=== PATIENT | male | born 1950 | race Caucasian/White ===

== ENCOUNTER 2016-08-05 07:18 | Outpatient (CLI) | payer OTHER ==
[2016-08-05 08:02] LABS: ALT (SGPT) 15 U/L (0-55); AST (SGOT) 14 U/L (5-34); Albumin 4.1 g/dL (3.4-4.8); Alkaline Phosphatase 68 U/L (40-150); Anion Gap 13 mmol/L (10-20); BUN (Urea Nitrogen) 13 mg/dL (8.4-25.7); Bilirubin, Total 0.6 mg/dL (0.2-1.2); Calc. Creatinine Clearance 0 mL/min (70-130); Calcium 9.2 mg/dL (7.8-10.44); Carbon Dioxide 29 mmol/L (23-31); Cardiac Risk 3.9 (Less than 4.5); Chloride 105 mmol/L (98-107); Cholesterol 175 mg/dL (< 200 Desired); Estimated GFR-MDRD 90; Globulin 2.5 g/dL (2.4-3.5); Glucose 117 mg/dL (80-115); HDL Cholesterol 45 mg/dL (>60 Neg Risk); LDL Cholesterol, Calculated 114 mg/dL; Potassium 3.8 mmol/L (3.5-5.1); Protein, Total 6.6 g/dL (5.8-8.1); Sodium 143 mmol/L (136-145); Triglycerides 78 mg/dL (Less than 150)
[2016-08-05 08:58] LABS: Hemoglobin A1c 5.4 % (4.0-6.0)
== END 2016-08-05 07:19 | disposition home or self-care (01) ==
LOC: MADLABBHPM 07:18
PROVIDERS: ATTEND Family Medicine
DX: E03.9 Hypothyroidism, unspecified (principal)
CPT/HCPCS: 36415; 80053; 80061; 83036

== ENCOUNTER 2017-01-28 07:09 | Outpatient (CLI) | payer OTHER ==
[2017-01-28 08:16] LABS: ALT (SGPT) 15 U/L (8-55); AST (SGOT) 12 U/L (5-34); Albumin 3.9 g/dL (3.4-4.8); Alkaline Phosphatase 60 U/L (40-150); Anion Gap 13 mmol/L (10-20); BUN (Urea Nitrogen) 12 mg/dL (8.4-25.7); Bilirubin, Total 0.6 mg/dL (0.2-1.2); Calc. Creatinine Clearance 0 mL/min (70-130); Calcium 8.8 mg/dL (7.8-10.44); Carbon Dioxide 26 mmol/L (23-31); Chloride 106 mmol/L (98-107); Estimated GFR-MDRD Greater than 90; Globulin 2.7 g/dL (2.4-3.5); Glucose 116 mg/dL (80-115); Potassium 3.7 mmol/L (3.5-5.1); Protein, Total 6.6 g/dL (5.8-8.1); Sodium 141 mmol/L (136-145)
== END 2017-01-28 07:10 | disposition home or self-care (01) ==
LOC: MADLABBHPM 07:09
PROVIDERS: ATTEND Family Medicine
DX: E03.9 Hypothyroidism, unspecified (principal)
CPT/HCPCS: 36415; 80053; 84443

== ENCOUNTER 2018-08-24 21:07 | Emergency (ER) | payer MEDICARE ==
[2018-08-24 22:22] LABS: Bilirubin Small (Negative); Blood, Urine Large (Negative); Clarity Slightly Cloudy (Clear); Glucose, Urine (Dipstick) Negative (Negative); Leukocyte Negative (Negative); Nitrite Negative (Negative); Protein, Urine (Dipstick) 30 mg/dL (Neg-Trace); Urobilinogen 0.2 mg/dL (0.2-1.0); pH, Urine 5.5 (5.0-9.0)
[2018-08-24 22:23] LABS: Specific Gravity, Urine 1.027 (1.002-1.036)
--- NOTE | 2018-08-24 22:35 | CT ---
CT ABDOMEN AND PELVIS WITHOUT CONTRAST STONE PROTOCOL 08/24/18 HISTORY: Abdominal pain. COMPARISON: CT from 02/13/18. FINDINGS: Scarring in the left lung base. There is a calculus in the proximal right ureter measuring 3 x 3 x 4 mm approximately 6 cm distal to the renal pelvis causing mild right sided hydroureteronephrosis and r ight sided perinephric stranding. No other calculus is seen within the right collecting system. There is a 6 mm calculus superior left renal collecting system. No left sided hydroureteronephrosis. Urinary bladder is unremarkable. No dilated loops of large or small bowel. The appendix is visualized and is normal. Prior small bowel surgery with some fecalization of the small bowel just distal to th e anastomosis likely neurogenic in nature. There is a small fat containing ventral hernia. Likely a prior ventral hernia repair with the fat ext ending craniad to this repair. No significant edema within the fat containing supraumbilical ventral hernia. No acute osseous abnormality. IMPRESSION: Partially obstructive right proximal ureteral calculus as described. POS: [id number]
[2018-08-24 22:42] LABS: #Basophils 0.1 thou/uL (0.0-0.2); #Eosinphils 0.1 thou/uL (0.0-0.7); #Lymphocytes 0.8 thou/uL (1.20-3.40); #Monocytes 0.6 thou/uL (0.11-0.59); #Neutrophils 11.8 thou/uL (1.40-6.50); %Basophils 0.9 % (0.0-1.0); %Eosinophils 0.7 % (0.0-10.0); %Lymphocytes 6.2 % (21.0-51.0); %Monocytes 4.3 % (0.0-10.0); %Neutrophils 87.9 % (42.0-75.0); Hemoglobin 13.2 g/dL (14.0-18.0); Mean Corpuscular HGB CONC 33.7 g/dL (32.0-36.0); Mean Corpuscular Hemoglobin 31.5 pg (27.0-31.0); Mean Corpuscular Volume 93.4 fL (78.0-98.0); Mean Platelet Volume 5.8 fL (7.4-10.4); Platelet Count 213 thou/uL (130-400); RBC Distribution Width 11.7 % (11.5-14.5); Red Blood Cell (RBC) Count 4.19 mill/uL (4.70-6.10); White Blood Cell (WBC) Count 13.4 thou/uL (4.8-10.8)
[2018-08-24 22:47] LABS: RBC/HPF GREATER THAN 50-TNTC HPF (0-3)
[2018-08-24 22:48] LABS: Bacteria/HPF Rare-Few HPF (None Seen); Crystals/HPF 3+ URIC ACID HPF (Negative)
[2018-08-24 22:49] LABS: Hyaline Casts/LPF NONE SEEN LPF (0-3 Hyaline)
[2018-08-24 22:56] LABS: ALT (SGPT) 26 U/L (8-55); AST (SGOT) 20 U/L (5-34); Albumin 4.1 g/dL (3.4-4.8); Alkaline Phosphatase 64 U/L (40-150); Anion Gap 13 mmol/L (10-20); BUN (Urea Nitrogen) 16 mg/dL (8.4-25.7); Bilirubin, Total 0.7 mg/dL (0.2-1.2); Calc. Creatinine Clearance 0 mL/min (70-130); Carbon Dioxide 26 mmol/L (23-31); Chloride 108 mmol/L (98-107); Estimated GFR-MDRD 52; Globulin 2.6 g/dL (2.4-3.5); Glucose 172 mg/dL (80-115); Potassium 3.7 mmol/L (3.5-5.1); Protein, Total 6.7 g/dL (5.8-8.1); Sodium 143 mmol/L (136-145)
[2018-08-24] MEDS ORDERED: Ondansetron ODT 4 MG TAB ONE (23:36)
[2018-08-24] MEDS ORDERED: Morphine 10 MG/ML VIAL ONE (23:36)
== END 2018-08-25 00:02 | disposition home or self-care (01) ==
LOC: MADERS 21:07
DX: N13.2 Hydronephrosis with renal and ureteral calculous obstruction (principal); E03.9 Hypothyroidism, unspecified; Z79.899 Other long term (current) drug therapy
CPT/HCPCS: 74176; 80053; 81003; 81015; 85025; 96372; J2270; Q0162

== ENCOUNTER 2020-10-20 11:15 | Emergency (ER) | payer MEDICARE ==
[2020-10-20] MEDS ORDERED: predniSONE 20 MG TAB ONE (12:39)
[2020-10-20] MEDS ORDERED: Azithromycin 250 MG TAB ONE (12:39)
== END 2020-10-20 12:38 | disposition home or self-care (01) ==
LOC: MADERS 11:15
DX: U07.1 COVID-19 (principal); J12.82 Pneumonia due to coronavirus disease 2019; R06.00 Dyspnea, unspecified; E03.9 Hypothyroidism, unspecified; Z85.038 Personal history of other malignant neoplasm of large intestine; Z79.899 Other long term (current) drug therapy
CPT/HCPCS: 71045; J7512

== ENCOUNTER 2021-01-19 11:24 | Outpatient (CLI) | payer MEDICARE ==
[2021-01-19 12:36] LABS: ALT (SGPT) 21 U/L (8-55); AST (SGOT) 18 U/L (5-34); Albumin 4.2 g/dL (3.4-4.8); Alkaline Phosphatase 72 U/L (40-110); Anion Gap 14 mmol/L (10-20); BUN (Urea Nitrogen) 14 mg/dL (8.4-25.7); Bilirubin, Total 0.8 mg/dL (0.2-1.2); Calc. Creatinine Clearance 0 mL/min (70-130); Calcium 9.5 mg/dL (7.8-10.44); Carbon Dioxide 27 mmol/L (23-31); Chloride 105 mmol/L (98-107); Glucose 96 mg/dL (80-115); Protein, Total 7.2 g/dL (5.8-8.1); Sodium 142 mmol/L (136-145)
[2021-01-19 12:57] LABS: Bilirubin Negative (Negative); Blood, Urine Negative (Negative); Clarity Clear (Clear); Glucose, Urine (Dipstick) Negative (Negative); Ketone, Urine Negative (Negative); Leukocyte Negative (Negative); Nitrite Positive (Negative); Protein, Urine (Dipstick) Negative (Neg-Trace); Specific Gravity, Urine 1.025 (1.005-1.030); Urobilinogen 0.2 mg/dL (Less than 2); pH, Urine 6.5 (5.0-9.0)
[2021-01-19 13:04] LABS: RBC/HPF 0-3 HPF (0-3)
== END 2021-01-19 11:25 | disposition home or self-care (01) ==
LOC: MADRAD 11:24
PROVIDERS: ATTEND Family Medicine
DX: E03.9 Hypothyroidism, unspecified (principal); R91.1 Solitary pulmonary nodule; J98.4 Other disorders of lung; M43.8X4 Other specified deforming dorsopathies, thoracic region; Z86.16 Personal history of COVID-19; Z87.01 Personal history of pneumonia (recurrent)
CPT/HCPCS: 36415; 71046; 80053; 81001; 84439; 84443; 87086

== ENCOUNTER 2023-07-21 14:08 | Outpatient (CLI) | payer MEDICARE | END 2023-07-21 14:09 | disposition home or self-care (01) | LOC: MADCT 14:08 | PROVIDERS: ATTEND Urology | DX: N20.2 Calculus of kidney with calculus of ureter (principal); M43.16 Spondylolisthesis, lumbar region; K42.9 Umbilical hernia without obstruction or gangrene; K43.9 Ventral hernia without obstruction or gangrene; Z98.890 Other specified postprocedural states | CPT/HCPCS: 74176 ==

== ENCOUNTER 2023-08-30 09:00 | Outpatient (CLI) | payer MEDICARE | END 2023-08-30 09:01 | disposition home or self-care (01) | LOC: MADCT 09:00 | PROVIDERS: ATTEND Urology | DX: N20.2 Calculus of kidney with calculus of ureter (principal) | CPT/HCPCS: 74176 ==